=== PATIENT | male | born 1960 | race Caucasian/White ===

== ENCOUNTER → 2023-04-20 | Outpatient (CLI) | payer SELFPAY ==
[~2023-04-20] MED LIST: ACET-861 PO; ATOR1TAB21; GABA-282; HYDR-3713; HYDR12.55; IBUP200C25 PO; LIDOCAINE 1% MDV 20ML VIAL As Ordered ONE; LOSA50TA28; METO1TAB87
[2023-04-20 12:25] VITALS: TEMP 98.2
[2023-04-20 13:17] LABS: BASO % 0.4 % (0.0-1.0); EOS # 0.1 10^3/uL (0.0-0.5); EOS % 2.3 % (0.0-3.0); HEMATOCRIT 25.5 % (42.0-52.0); HEMOGLOBIN 8.6 g/dl (13.5-17.5); LYMPH # 1.6 10^3/uL (1.5-5.0); LYMPH % 34.5 % (24.0-44.0); MEAN CORPUSCULAR HEMOGLOBIN 30.8 pg (27.0-33.0); MEAN CORPUSCULAR HGB CONC 33.7 g/dl (32.0-36.5); MEAN CORPUSCULAR VOLUME 91.4 fl (80.0-96.0); MONO # 0.5 10^3/uL (0.0-0.8); MONO % 11.3 % (2.0-8.0); NEUTROPHILS # 2.4 10^3/uL (1.5-8.5); NEUTROPHILS % 50.2 % (36.0-66.0); PLATELET COUNT, AUTOMATED 198 10^3/uL (150-450); RED BLOOD COUNT 2.79 10^6/uL (4.30-6.10); WHITE BLOOD COUNT 4.8 10^3/uL (4.0-10.0)
[2023-04-20 13:25] VITALS: BP 129/72; O2SAT 95
== END ==
LOC: M IRPRO 12:05
PROVIDERS: ATTEND Internal Medicine Medical Oncology
DX: D47.2 Monoclonal gammopathy (principal)

== ENCOUNTER → 2023-05-11 | Outpatient (CLI) | payer SELFPAY ==
[~2023-05-11] MED LIST changes: -GABA-282; +GABA-282 PO; -LIDOCAINE 1% MDV 20ML VIAL As Ordered ONE; -METO1TAB87; +METO1TAB87 PO
== END ==
LOC: M ONCR 09:07
PROVIDERS: ATTEND General Practice
DX: C90.00 Multiple myeloma not having achieved remission (principal); E78.5 Hyperlipidemia, unspecified; I10 Essential (primary) hypertension; Z71.2 Person consulting for explanation of examination or test findings; Z79.1 Long term (current) use of non-steroidal anti-inflammatories (NSAID); Z79.891 Long term (current) use of opiate analgesic; Z79.899 Other long term (current) drug therapy; Z80.8 Family history of malignant neoplasm of other organs or systems

== ENCOUNTER 2023-05-24 08:45 | Outpatient (RCR) | payer SELFPAY ==
[~2023-05-24 08:45] MED LIST changes: -ATOR1TAB21; +ATOR1TAB21 PO; +DEXA4TA PO; +FAMO20TA PO; -HYDR-3713; +HYDR-3713 PO; -HYDR12.55; +HYDR12.55 PO; -LOSA50TA28; +LOSA50TA28 PO; +OXYC10TA3 PO; +REVL25CA PO
[2023-05-24] MEDS ORDERED: OXYC10TA3 PO (09:57)
[2023-05-30] MEDS ORDERED: REVL25CA PO (08:46)
== END 2023-05-29 ==
LOC: M ONCR 08:45
PROVIDERS: ATTEND General Practice
DX: C90.00 Multiple myeloma not having achieved remission (principal)

== ENCOUNTER → 2023-06-27 | Outpatient (CLI) | payer SELFPAY ==
[~2023-06-27] MED LIST changes: +ASPI81CH33 PO; +[UNRECOGNIZED DRUG - CODE] SC
== END ==
LOC: M ONCR 09:58
PROVIDERS: ATTEND General Practice
DX: C90.00 Multiple myeloma not having achieved remission (principal); Z92.3 Personal history of irradiation

== ENCOUNTER → 2023-08-16 | Outpatient (REF) | payer SELFPAY ==
[~2023-08-16] MED LIST changes: +ACYC1TAB PO
[2023-08-16 13:45] LABS: ALBUMIN 3.8 G/DL (3.2-5.2); ALKALINE PHOSPHATASE 135 U/L (46-116); ALT/SGPT 29 U/L (7.0-40); AST/SGOT 35 U/L (<34); BILIRUBIN,TOTAL 0.5 MG/DL (0.3-1.2); BLOOD UREA NITROGEN 14 MG/DL (9-23); CALCIUM LEVEL 8.3 MG/DL (8.3-10.6); CARBON DIOXIDE LEVEL 26 MMOL/L (20-31); CHLORIDE LEVEL 95 MMOL/L (98-107); CHOLESTEROL LEVEL 125 MG/DL (<200); CREATININE FOR GFR 0.81 MG/DL (0.70-1.30); GLOMERULAR FILTRATION RATE > 60.0 (>49); GLUCOSE, FASTING 146 MG/DL (74-106); POTASSIUM SERUM 4.5 MMOL/L (3.5-5.1); PROSTATIC SPECIFIC AG MONITOR 1.94 NG/ML (< 4.00); SODIUM LEVEL 127 MMOL/L (136-145); TOTAL PROTEIN 7.2 G/DL (5.7-8.2); TRIGLYCERIDES LEVEL 142 MG/DL (<150)
[2023-08-16 19:01] LABS: CHOLESTEROL RISK RATIO 2.44 (<5); HDL CHOLESTEROL 51.1 MG/DL (>40); LDL CHOLESTEROL 45.5 MG/DL (<100); NON-HDL-C 73.9 MG/DL
== END ==
LOC: M LAB REF 12:46
PROVIDERS: ATTEND Physician Assistant
DX: I10 Essential (primary) hypertension (principal); Z12.5 Encounter for screening for malignant neoplasm of prostate; E78.5 Hyperlipidemia, unspecified

== ENCOUNTER → 2023-10-17 | Outpatient (CLI) | payer SELFPAY ==
[~2023-10-17] MED LIST changes: +AZIT-12; +BACT800T5 PO; +CEFU50TA PO; +PRED10TA2
== END ==
LOC: M RAD 12:16
PROVIDERS: ATTEND Internal Medicine Hematology & Oncology
DX: C90.00 Multiple myeloma not having achieved remission (principal)

== ENCOUNTER → 2023-12-21 | Outpatient (CLI) | payer SELFPAY | LOC: M ONCR 10:21 | PROVIDERS: ATTEND General Practice | DX: C90.00 Multiple myeloma not having achieved remission (principal); Z79.82 Long term (current) use of aspirin; Z79.899 Other long term (current) drug therapy ==

== ENCOUNTER → 2024-02-15 | Outpatient (CLI) | payer SELFPAY ==
[~2024-02-15] MED LIST changes: +AMOX875T PO
== END ==
LOC: M RAD 11:52
PROVIDERS: ATTEND Nurse Practitioner
DX: M79.605 Pain in left leg (principal); R22.42 Localized swelling, mass and lump, left lower limb